=== PATIENT | female | born 1965 | race Caucasian/White ===

== ENCOUNTER → 2018-11-16 | Outpatient (REF) ==
--- NOTE | 2018-11-16 12:29 | REP ---
Right hand four views: Mineralization is normal. There is no joint space narrowing. There are no calcifications or foreign bodies. No fracture or dislocation. Impression: Negative right hand. Electronically Signed by Darell Callahan MD 11/16/2018 12:21 P
--- NOTE | 2018-11-16 12:56 | REP ---
LEFT KNEE, FIVE VIEWS: Five views of the left knee performed. No acute fracture or dislocation is seen. There is minimal medial joint space narrowing. There appears to be minimal lateral patellofemoral compartment narrowing with mild subchondral sclerosis. There is a tiny spur of the superior pole of the patella. There is no joint effusion. IMPRESSION: Moderate degenerative changes. Electronically Signed by Darell Moralez MD 11/18/2018 12:58 P
== END ==
LOC: M SMT 10:18
PROVIDERS: ATTEND Internal Medicine
DX: Z02.71 Encounter for disability determination (principal)